=== PATIENT | male | born 1955 | race Caucasian/White ===

== ENCOUNTER 2018-09-20 05:23 | Emergency (ER) | payer BC ==
[2018-09-20 05:29] VITALS: BMI 35.9
--- NOTE | 2018-09-20 05:37 | PDOC ---
History of Present Illness - General History Source: Patient Exam Limitations: No Limitations - History of Present Illness Initial Comments: 09/20/18 05:40 This is a 63-year-old male with history significant for hypertension who comes in complaining of acute onset of left sided and left lower quadrant abdominal pain. Patient denies history of similar symptoms in the past. Patient denies any nausea at this time but did vomit times one. Patient denies any fevers or chills. Patient said pain is been constant since 7 PM last night. Allergies: None Past Medical History: none Social history: Lives with family. No smoking. No alcohol. No illicit drugs. Surgical history: None General: No fevers or chills, no weakness, no weight loss HEENT: No change in vision. No sore throat,. No ear pain CardioVascular: no chest discomfort. No shortness of breath Respiratory:No cough, or wheezing. Gastrointestinal: + nausea, +vomiting, no diarrhea or constipation, No rectal bleeding, + abdominal pain Genitourinary: No dysuria, hematuria, or frequency Musculoskeletal: No joint or muscle pain or swelling Neurologic: No headache, vertigo, dizziness or loss of consciousness Psychiatric: nor depression Skin: No rashes or easy bruising Endocrine: no increased thirst or abnormal weight change Allergic: no skin or latex allergy All other systems reviewed and normal Exam: General: Well-nourished well-developed individual, no acute distress HEENT: Throat: Normal, tonsils normal, no erythema or exudate Neck: Supple, no meningeal signs, no lymphadenopathy Eyes::Pupils equal reactive and round, extraocular motion intact Chest: Nontender to palpation Cardiac: S1-S2 normal, regular rate and rhythm, no murmurs rubs or gallops Respiratory: Lungs clear to auscultation bilateral Abdomen: Soft, nondistended, normal bowel sounds, there is tenderness on palpation lateral to the left side of the umbilicus as well as the left lower quadrant there is no guarding or rebound Extremities: Warm, dry, no cyanosis, clubbing, or edema Skin: No rashes Neuro: Alert and oriented x3, CN II - XII intact, nonfocal exam with normal strength, normal sensation, normal reflexes, normal gait, Psych: Normal mood and affect Medical decision making: This is a 63-year-old male with left sided left lower quadrant abdominal pain times approximately 10 hours now. Workup initiated including CBC, comp, lipase, cardiac enzymes, EKG, fluids, pain medication, CT abdomen and pelvis. Differential diagnosis includes constipation, obstruction, diverticulitis, other intra-abdominal processes <Griselda Camargo I - Last Filed: 09/20/18 05:40> <Walt Walls - Last Filed: 09/20/18 10:46> - General Chief Complaint: Pain, Acute Stated Complaint: ABD PAIN Time Seen by Provider: 09/20/18 05:36 Past History - Past Medical History COPD: No GI Disorders: Yes HTN: Yes Other medical history: ARTHRITIS - Suicide/Smoking/Psychosocial Hx Smoking History: Never smoked Have you smoked in the past 12 months: No Number of Cigarettes Smoked Daily: 0 Information on smoking cessation initiated: No Hx Alcohol Use: No Drug/Substance Use Hx: No Substance Use Type: None <Griselda Camargo I - Last Filed: 09/20/18 05:40> <Walt Walls - Last Filed: 09/20/18 10:46> - Past Medical History Allergies/Adverse Reactions: Allergies Allergy/AdvReac Type Severity Reaction Status Date / Time No Known Allergies Allergy Verified 08/30/17 19:06 Home Medications: Ambulatory Orders Oxycodone HCl 5 mg PO TID 08/30/17 Zolpidem Tartrate [Ambien] 5 mg PO HS 08/30/17 Amitriptyline HCl [Elavil -] 10 mg PO DAILY 09/20/18 Amlodipine Besylate 5 mg PO DAILY 09/20/18 *Physical Exam - Vital Signs Last Vital Signs Temp Pulse Resp BP Pulse Ox 97.7 F 62 14 186/100 H 98 09/20/18 05:26 09/20/18 05:26 09/20/18 05:26 09/20/18 05:26 09/20/18 05:26 <Griselda Camargo I - Last Filed: 09/20/18 05:40> - Vital Signs Last Vital Signs Temp Pulse Resp BP Pulse Ox 98.6 F 72 16 155/88 98 09/20/18 07:20 09/20/18 07:20 09/20/18 07:20 09/20/18 07:20 09/20/18 05:26 <Walt Walls - Last Filed: 09/20/18 10:46> Moderate Sedation - Procedure Monitoring Vital Signs: Procedure Monitoring Vital Signs Temperature 97.7 F 09/20/18 05:26 Pulse Rate 62 09/20/18 05:26 Respiratory Rate 14 09/20/18 05:26 Blood Pressure 186/100 H 09/20/18 05:26 O2 Sat by Pulse Oximetry (%) 98 09/20/18 05:26 <Griselda Camargo I - Last Filed: 09/20/18 05:40> - Procedure Monitoring Vital Signs: Procedure Monitoring Vital Signs Temperature 98.6 F 09/20/18 07:20 Pulse Rate 72 09/20/18 07:20 Respiratory Rate 16 09/20/18 07:20 Blood Pressure 155/88 09/20/18 07:20 O2 Sat by Pulse Oximetry (%) 98 09/20/18 05:26 <Walt Walls - Last Filed: 09/20/18 10:46> ED Treatment Course - LABORATORY CBC & Chemistry Diagram: 09/20/18 05:42 09/20/18 05:42 - ADDITIONAL ORDERS Additional order review: Laboratory Results 09/20/18 09/20/18 09/20/18 08:08 05:42 05:42 Sodium Potassium Chloride Carbon Dioxide Anion Gap BUN Creatinine Creat Clearance w eGFR Random Glucose Calcium Total Bilirubin AST ALT Alkaline Phosphatase Creatine Kinase Cancelled Troponin I Cancelled Total Protein Albumin Lipase 132 Urine Color Heaven Urine Appearance Clear Urine pH 7.0 Ur Specific Mccoll 1.015 Urine Protein Negative Urine Glucose (UA) Negative Urine Ketones Negative Urine Blood Negative Urine Nitrite Negative Urine Bilirubin Negative Urine Urobilinogen 0.2 Ur Leukocyte Esterase Negative 09/20/18 05:42 Sodium 140 Potassium 4.2 Chloride 105 Carbon Dioxide 24 Anion Gap 11 BUN 22 H Creatinine 1.1 Creat Clearance w eGFR > 60 Random Glucose 177 H Calcium 9.5 Total Bilirubin 1.0 AST 17 ALT 39 Alkaline Phosphatase 70 Creatine Kinase 99 Troponin I < 0.02 Total Protein 7.6 Albumin 4.2 Lipase Urine Color Urine Appearance Urine pH Ur Specific Mccoll Urine Protein Urine Glucose (UA) Urine Ketones Urine Blood Urine Nitrite Urine Bilirubin Urine Urobilinogen Ur Leukocyte Esterase 09/20/18 05:42 RBC 5.47 MCV 85.7 MCHC 32.5 RDW 14.7 MPV 8.1 D Neutrophils % 83.5 H D Lymphocytes % 12.6 D Monocytes % 3.4 L Eosinophils % 0.2 D Basophils % 0.3 - Medications Given in the ED: ED Medications Discontinued Medications Generic Name Dose Route Start Last Admin Trade Name Sarah PRN Reason Stop Dose Admin Acetaminophen 1,000 mg 09/20/18 07:18 09/20/18 07:26 Ofirmev Injection - IVPB 09/20/18 07:19 1,000 mg ONCE ONE Administration Hydromorphone HCl 1 mg 09/20/18 05:45 09/20/18 05:53 Dilaudid Injection - IVPUSH 09/20/18 05:46 1 mg ONCE ONE Administration Sodium Chloride 1,000 mls @ 1,000 mls/hr 09/20/18 05:44 09/20/18 05:46 Normal Saline - IV 09/20/18 06:43 1,000 mls/hr .Q1H ONE Administration Morphine Sulfate 4 mg 09/20/18 05:44 09/20/18 05:47 Morphine Injection - IVPUSH 09/20/18 05:45 4 mg ONCE ONE Administration Sodium Chloride 1,000 ml 09/20/18 07:18 09/20/18 07:26 Normal Saline - IV 09/20/18 07:19 1,000 ml ONCE ONE Administration Sodium Chloride 1,000 ml 09/20/18 09:09 09/20/18 09:13 Normal Saline - IV 09/20/18 09:10 1,000 ml ONCE ONE Administration <Walt Walls - Last Filed: 09/20/18 10:46> Medical Decision Making - Medical Decision Making 09/20/18 10:34 Patient feels much better no longer having pain and had a small bowel movement Patient does not want to be observed in the hospital secondary to insurance issues I discussed for greater than 15 minutes of patient risks and benefits of leaving the hospital versus staying for observation Patient understands these risks is competent and has capacity to make decisions. He will return to the hospital for any returning pain abdominal distention or for any concerns Otherwise she will follow up with his doctor gastroenterology within 1 week Findings, the need for follow-up and strict return instructions discussed with patient. <Walt Walls - Last Filed: 09/20/18 10:46> *DC/Admit/Observation/Transfer <Griselda Camargo I - Last Filed: 09/20/18 05:40> - Discharge Dispostion Decision to Admit order: No <Walt Walls - Last Filed: 09/20/18 10:46> Diagnosis at time of Disposition: Ileus - Discharge Dispostion Disposition: AGAINST MEDICAL ADVICE Condition at time of disposition: Fair - Referrals Referrals: Bk Sheldon MD [Primary Care Provider] - Jose C Tavarez MD [Staff Physician] - Lonnie Salgado DO [Staff Physician] - - Patient Instructions Printed Discharge Instructions: Acute Abdominal Pain Additional Instructions: Your CAT scan showed a small ileus with distended stomach and bowel above this point It was recommended that you stay in the hospitall for hydration and bowel rest. You have decided to leave against medical advice. Clear fluids for the next 24hrs if no pain and passing gas ok to proceed to bland diet. Return to ED immediately for any severe returning pain vomitting or any concerns - Post Discharge Activity
[2018-09-20] MEDS ORDERED: morphine SULFATE 4 MG/ML VIAL ONE (05:40)
[2018-09-20] MEDS ORDERED: SODIUM CHLORIDE 1,000 ML IV ONE (05:44)
[2018-09-20] MEDS ORDERED: morphine CARPU-JECT 4 MG/1 ML DISP.SYRIN IVPUSH ONE (05:44)
[2018-09-20] MEDS ORDERED: HYDROmorphone HCL CARPU-JECT 1 MG/1 ML DISP.SYRIN IVPUSH ONE (05:45)
[2018-09-20] MEDS ORDERED: HYDROmorphone HCL CARPU-JECT 1 MG/1 ML DISP.SYRIN ONE (05:49)
[2018-09-20 06:15] LABS: BASO % 0.3 % (0-2.0); EOS % 0.2 % (0-4.5); HEMATOCRIT 46.9 % (35.4-49); HEMOGLOBIN 15.2 GM/dL (11.7-16.9); LYMPH % 12.6 % (8-40); MCH 27.9 pg (25.7-33.7); MCHC 32.5 g/dl (32.0-35.9); MEAN CELL VOLUME 85.7 fl (80-96); MEAN PLT VOLUME 8.1 fl (7.5-11.1); MONO % 3.4 % (3.8-10.2); NEUT % 83.5 % (42.8-82.8); PLATELET COUNT 257 K/MM3 (134-434); RBC 5.47 M/mm3 (4.00-5.60); RDW 14.7 % (11.9-15.9); WHITE BLOOD COUNT 12.1 K/mm3 (4.0-10.0)
[2018-09-20 06:53] LABS: ALBUMIN 4.2 g/dl (3.4-5.0); ALK PHOS 70 U/L (45-117); ANION GAP 11 MMOL/L (8-16); BLOOD UREA NITROGEN 22 mg/dL (7-18); CALCIUM 9.5 mg/dL (8.5-10.1); CHLORIDE 105 mmol/L (98-107); CO2 24 mmol/L (21-32); CREATININE 1.1 mg/dL (0.55-1.3); GLUCOSE,RANDOM 177 mg/dL (74-106); POTASSIUM 4.2 mmol/L (3.5-5.1); SGOT/AST 17 U/L (15-37); SGPT/ALT 39 U/L (13-61); SODIUM 140 mmol/L (136-145); TOT PROT 7.6 g/dl (6.4-8.2)
[2018-09-20] MEDS ORDERED: ACETAMINOPHEN 1000 MG/100 ML VIAL (NON FORMULARY) IVPB ONE (07:18)
[2018-09-20] MEDS ORDERED: SODIUM CHLORIDE 0.9% 1000 ML INFUS.BAG IV ONE ×2 (07:18→09:09)
[2018-09-20] MEDS ORDERED: ACETAMINOPHEN INJECTION 100 ML IVPB ONE (07:19)
[2018-09-20 08:15] LABS: URINE APPEARANCE Clear; URINE BILIRUBIN Negative (NEGATIVE); URINE COLOR Amber; URINE GLUCOSE (UA) Negative (NEGATIVE); URINE KETONE Negative (NEGATIVE); URINE LEUK ESTERASE Negative (NEGATIVE); URINE NITRITE Negative (NEGATIVE); URINE PROTEIN Negative (NEGATIVE); URINE UROBILINOGEN 0.2 (0.2-1.0)
[2018-09-20 11:12] VITALS: BP 139/98; PULSE 81; TEMP 98.9
--- NOTE | 2018-09-20 15:28 | EKG ---
Test Reason : Blood Pressure : / mmHG Vent. Rate : 075 BPM Atrial Rate : 075 BPM P-R Int : 146 ms QRS Dur : 086 ms QT Int : 482 ms P-R-T Axes : 041 019 009 degrees QTc Int : 538 ms NORMAL SINUS RHYTHM ABNORMAL ECG WHEN COMPARED WITH ECG OF 30-AUG-2017 23:05, QT HAS LENGTHENED Confirmed by TOSHIA MATA MD ([id number]) on 09/20/2018 3:28:12 PM Referred By: MD PEOPLES Confirmed By:TOSHIA MATA MD
== END 2018-09-20 10:58 | disposition left against medical advice (07) ==
LOC: FER 05:23
PROC: 3E033NZ Introduction of Analgesics, Hypnotics, Sedatives into Peripheral Vein, Percutaneous Approach (ICD-10-PCS; principal; 2018-09-20)
PROC: 3E0337Z Introduction of Electrolytic and Water Balance Substance into Peripheral Vein, Percutaneous Approach (ICD-10-PCS; 2018-09-20)
DX: K56.7 Ileus, unspecified (principal)
CPT/HCPCS: 36415; 74177-TC; 80053; 81003; 82550; 83690; 84484; 85025; 87086; 93005; 99284-25; J0131; J7030

== ENCOUNTER 2019-03-13 18:56 | Emergency (ER) | payer BC ==
[2019-03-13 19:17] VITALS: TEMP 98.4; BMI 35.9
--- NOTE | 2019-03-13 19:45 | PDOC ---
History of Present Illness - General Chief Complaint: Pain Stated Complaint: PAIN TO NORMA OF RIGHT KNEE AND POSSIBLE NEAR SYNC Time Seen by Provider: 03/13/19 19:42 Past History - Past Medical History Allergies/Adverse Reactions: Allergies Allergy/AdvReac Type Severity Reaction Status Date / Time No Known Allergies Allergy Verified 03/13/19 19:00 Home Medications: Ambulatory Orders Oxycodone HCl 5 mg PO TID 08/30/17 Zolpidem Tartrate [Ambien] 5 mg PO HS 08/30/17 Amlodipine Besylate 5 mg PO DAILY 09/20/18 COPD: No GI Disorders: Yes HTN: Yes Other medical history: SPINAl stenosis - Suicide/Smoking/Psychosocial Hx Smoking History: Never smoked Have you smoked in the past 12 months: No Number of Cigarettes Smoked Daily: 0 Information on smoking cessation initiated: No Hx Alcohol Use: No Drug/Substance Use Hx: No Substance Use Type: None *Physical Exam - Vital Signs Last Vital Signs Temp Pulse Resp BP Pulse Ox 98.4 F 71 16 126/94 96 03/13/19 18:59 03/13/19 18:59 03/13/19 18:59 03/13/19 18:59 03/13/19 18:59 *DC/Admit/Observation/Transfer - Discharge Dispostion Condition at time of disposition: Stable - Referrals Referrals: Bk Sheldon MD [Primary Care Provider] - - Patient Instructions - Post Discharge Activity
--- NOTE | 2019-03-13 20:09 | PDOC ---
*Physical Exam - Vital Signs Last Vital Signs Temp Pulse Resp BP Pulse Ox 98.4 F 71 16 126/94 96 03/13/19 18:59 03/13/19 18:59 03/13/19 18:59 03/13/19 18:59 03/13/19 19:50 Progress Note - Progress Note Progress Note: Care of this patient was transferred to [place] from Dr. Doyle at 1930. This is a 63-year-old male who comes in complaining of pain to the back of his leg. Patient has an ultrasound Doppler pending to rule out Garcia's cyst rule out DVT. Patient otherwise was without complaint. On Dr. Doyle exam patient did have some edema and tenderness. Plan is to follow up on ultrasound and discharge patient post result of ultrasound. Patient's ultrasound showed a small collection of fluid behind the knee consistent with a small Garcia's cyst otherwise no evidence of DVT. Patient discharged home will follow-up with his primary care doctor *DC/Admit/Observation/Transfer Diagnosis at time of Disposition: Garcia's cyst of knee Qualifiers: Laterality: right Qualified Code(s): M71.21 - Synovial cyst of popliteal space [Garcia], right knee - Discharge Dispostion Disposition: HOME Condition at time of disposition: Stable Decision to Admit order: No - Referrals Referrals: Bk Sheldon MD [Primary Care Provider] - - Patient Instructions Additional Instructions: Your ultrasound showed that there is a small collection of fluid underneath this is called a Bakers cyst. There was no blood clots in your leg. For the pain take an anti-inflammatory such as ibuprofen or Aleve as directed on the box. Return to the emergency department immediately with ANY new, persistent or worsening symptoms. Continue any medications as previously prescribed by your physician. You should follow up with your primary doctor as soon as possible regarding today's emergency department visit. . Please make sure your doctor reviews the results of your emergency evaluation. Thank you for coming to the Emergency Department today for your care. It was a pleasure to see you today. Please note that your evaluation is INCOMPLETE until you follow-up with your doctor. - Post Discharge Activity
--- NOTE | 2019-03-13 21:08 | PDOC ---
*Physical Exam - Vital Signs Last Vital Signs Temp Pulse Resp BP Pulse Ox 98.4 F 71 16 126/94 96 03/13/19 18:59 03/13/19 18:59 03/13/19 18:59 03/13/19 18:59 03/13/19 19:50 Heart Score/ECG Review - History History: Slightly suspicious - Electrocardiogram EKG: Normal - Age Age: 45-65 - Risk Factors Risk Factors Heart Score: Yes Hx Hypertension Based on the list above the patient has:: 1-2 risk factors - Troponin Troponin: </= normal limit - Score Heart Score - Total: 2 ED Treatment Course - LABORATORY CBC & Chemistry Diagram: 03/13/19 21:09 03/13/19 21:09 - RADIOLOGY Radiology Studies Ordered: Category Date Time Status HEAD CT WITHOUT CONTRAST [CT] Stat CT Scan 03/13/19 20:58 Ordered Progress Note - Progress Note Progress Note: Post completing the patient's discharge and going in to tell them he was being discharged patient then informs me that the reason he came here was because he had been passing out. Patient states that he has had 2 syncopal episodes over the last 24-48 hours. Patient said both times he definitely passed out and was out for an unknown amount of time however he felt like he was going to pass out and did not fall and hurt himself when he passed out. Patient said prior to passing out he felt lightheaded and short of breath and then he passed out. Patient denied any chest pain, nausea, diaphoresis. Patient denies a history of vasovagal or syncope episodes in the past. Patient also is complaining that it feels like things are moving back and forth when they are. He describes it as a sensation of rocking back and forth on a boat. Patient has a history significant for hypertension. He denies history of diabetes, coronary artery disease or any other illnesses. Allergies: as per nursing notes Past Medical History: As per history of present illness and chronic back pain Social history: Lives with family. No smoking. No alcohol. No illicit drugs. Surgical history: None General: No fevers or chills, no weakness, no weight loss HEENT: No change in vision. No sore throat,. No ear pain CardioVascular: no chest discomfort. No shortness of breath Respiratory:No cough, or wheezing. Gastrointestinal: no nausea, vomiting, diarrhea or constipation, No rectal bleeding Genitourinary: No dysuria, hematuria, or frequency Musculoskeletal: No joint or muscle pain or swelling Neurologic: No headache, vertigo, + dizziness + loss of consciousness Psychiatric: nor depression Skin: No rashes or easy bruising Endocrine: no increased thirst or abnormal weight change Allergic: no skin or latex allergy All other systems reviewed and normal Exam: General: Well-nourished well-developed individual, no acute distress HEENT: Throat: Normal, tonsils normal, no erythema or exudate Neck: Supple, no meningeal signs, no lymphadenopathy Eyes::Pupils equal reactive and round, extraocular motion intact Chest: Nontender to palpation Cardiac: S1-S2 normal, regular rate and rhythm, no murmurs rubs or gallops Respiratory: Lungs clear to auscultation bilateral Abdomen: Soft, nondistended, normal bowel sounds, there is no tenderness on palpation diffusely Extremities: Warm, dry, no cyanosis, clubbing, or edema Skin: No rashes Neuro: Alert and oriented x3, CN II - XII intact, nonfocal exam with normal strength, normal sensation, normal reflexes, normal gait, Psych: Normal mood and affect Assessment and plan: This is a 63-year-old male who comes in what I thought was initially or leg and calf pain to rule out DVT. However in further talking to the patient patient was really here for 2 near syncope/question of syncope all events. Patient got a workup for the syncope. Patient's head CT was negative for any acute pathology Patient's EKG showed a sinus rhythm at [address]-T wave changes otherwise normal Patient's troponin was negative Patient's heart score is 2 Patient was discharged told to follow-up with a neurologist given his family history of amyloid angiopathy. *DC/Admit/Observation/Transfer Diagnosis at time of Disposition: Garcia's cyst of knee Qualifiers: Laterality: right Qualified Code(s): M71.21 - Synovial cyst of popliteal space [Garcia], right knee Syncope Qualifiers: Syncope type: unspecified Qualified Code(s): R55 - Syncope and collapse - Discharge Dispostion Disposition: HOME Condition at time of disposition: Stable - Referrals Referrals: Bk Sheldon MD [Primary Care Provider] - - Patient Instructions Additional Instructions: Your ultrasound showed that there is a small collection of fluid underneath this is called a Bakers cyst. There was no blood clots in your leg. Otherwise your workup for syncope or passing out was negative. It is likely the syncope or passing out was secondary to the pain in your knee however it is important that you follow-up with a auto club travel counselor as well as a neurologist given your family history For the pain take an anti-inflammatory such as ibuprofen or Aleve as directed on the box. Return to the emergency department immediately with ANY new, persistent or worsening symptoms. Continue any medications as previously prescribed by your physician. You should follow up with your primary doctor as soon as possible regarding today's emergency department visit. . Please make sure your doctor reviews the results of your emergency evaluation. Thank you for coming to the Emergency Department today for your care. It was a pleasure to see you today. Please note that your evaluation is INCOMPLETE until you follow-up with your doctor. - Post Discharge Activity
[2019-03-13 22:06] LABS: ALBUMIN 4.2 g/dl (3.4-5.0); BILIRUBIN,TOTAL 1.5 mg/dl (0.2-1); CALCIUM 10.1 mg/dl (8.5-10); POTASSIUM 4.4 mmol/L (3.5-5.1); TOT PROT 7.1 g/dl (6.4-8.2)
[2019-03-13 22:27] LABS: BASO % 0.5 % (0-2.0); HEMATOCRIT 45.5 % (35.4-49); HEMOGLOBIN 15.2 GM/dl (11.7-16.9); LYMPH % 32.8 % (8-40); MCH 28.8 pg (25.7-33.7); MCHC 33.5 g/dl (32.0-35.9); MEAN CELL VOLUME 86.2 fl (80-96); MEAN PLT VOLUME 8.3 fl (7.5-11.1); MONO % 6.4 % (3.8-10.2); NEUT % 58.3 % (42.8-82.8); PLATELET COUNT 279 K/MM3 (134-434); RBC 5.27 M/mm3 (4.00-5.60); WHITE BLOOD COUNT 9.6 K/mm3 (4.0-10.8)
[2019-03-13 22:56] VITALS: BP 122/88; PULSE 74
--- NOTE | 2019-03-14 13:15 | EKG ---
Test Reason : Blood Pressure : / mmHG Vent. Rate : 063 BPM Atrial Rate : 063 BPM P-R Int : 154 ms QRS Dur : 078 ms QT Int : 402 ms P-R-T Axes : 007 003 -14 degrees QTc Int : 411 ms NORMAL SINUS RHYTHM MINIMAL VOLTAGE CRITERIA FOR LVH, MAY BE NORMAL VARIANT NONSPECIFIC ST AND T WAVE ABNORMALITY ABNORMAL ECG WHEN COMPARED WITH ECG OF 20-SEP-2018 06:10, QT HAS SHORTENED Confirmed by ESPERANZA ROWLEY, TOSHIA ([id number]) on 03/14/2019 1:15:14 PM Referred By: MD PEOPLES Confirmed By:TOSHIA MATA MD
== END 2019-03-13 22:56 | disposition home or self-care (01) ==
LOC: FER 18:56
DX: M71.21 Synovial cyst of popliteal space [Baker], right knee (principal); R55 Syncope and collapse; I10 Essential (primary) hypertension
CPT/HCPCS: 36415; 70450-TC; 80053; 82550; 82553; 84484; 85025; 93005; 93971-TC; 99284-25

== ENCOUNTER 2019-07-05 23:31 | Emergency (ER) | payer BC ==
[2019-07-05 23:46] VITALS: BP 115/88; PULSE 72; TEMP 98.2; BMI 36.6
--- NOTE | 2019-07-06 00:34 | PDOC ---
History of Present Illness - General Chief Complaint: Shortness of Breath Stated Complaint: SOB Time Seen by Provider: 07/05/19 23:35 - History of Present Illness Initial Comments: This 64-year-old man with a history of HTN, spinal stenosis,anxiety presents with 6 hour history of upper abdominal distention, bloating and sensation that he cannot take it deep breath secondary to the abdominal distention. He also has not taken any oral fluids or solids in the last 12 hours because he feels that his stomach is "too full". He has no nausea/vomiting or abdominal pain. He also feels he cannot take a deep breath , stating that he feels his "diaphragm cannot move fully". Yesterday, he was able to eat but was feeling mild distention of his abdomen. Patient has had similar symptoms in the past but upper endoscopy (as well as colonoscopy) was performed and no abnormality was reportedly found. He has had burning abdominal pain in the past, treated effectively with amitriptyline but no history of peptic ulcers disease/gastritis /GERD. No history of diabetes or diagnosis of gastric outlet obstruction/ gastroparesis. He has also had increase in bilateral ankle edema in the last few days; his amlodipine dose was doubled 2 weeks ago by his PMD, Dr. Sheldon. No pain noted in lower extremities Past History - Past Medical History Allergies/Adverse Reactions: Allergies Allergy/AdvReac Type Severity Reaction Status Date / Time No Known Allergies Allergy Verified 03/13/19 19:00 Home Medications: Ambulatory Orders Oxycodone HCl 5 mg PO TID 08/30/17 Zolpidem Tartrate [Ambien] 5 mg PO HS 08/30/17 Amlodipine Besylate 10 mg PO DAILY 09/20/18 LORazepam [Ativan] 1 mg PO DAILY PRN #3 tablet MDD 1 tab 07/06/19 COPD: No GI Disorders: Yes HTN: Yes - Suicide/Smoking/Psychosocial Hx Smoking History: Never smoked Have you smoked in the past 12 months: No Number of Cigarettes Smoked Daily: 0 Hx Alcohol Use: No Drug/Substance Use Hx: No Substance Use Type: None Review of Systems - Review of Systems Able to Perform ROS?: Yes Comments:: 12 point review of systems is negative except for what is noted in the history of present illness *Physical Exam - Vital Signs Last Vital Signs Temp Pulse Resp BP Pulse Ox 98.2 F 72 16 115/88 98 07/05/19 23:43 07/05/19 23:43 07/05/19 23:43 07/05/19 23:43 07/05/19 23:43 - Physical Exam Comments: GENERAL: Adult male, anxious but in no respiratory distress HEAD: Normal with no signs of trauma. EYES: PERRLA, EOMI, sclera anicteric, conjunctiva clear. ENT: Ears normal, nares patent, oropharynx clear without exudates. Dry mucous membranes. NECK: Normal range of motion, supple without lymphadenopathy, JVD, or masses. LUNGS: Breath sounds equal, clear to auscultation bilaterally. No wheezes, and no crackles. HEART:Regular rate and rhythm, normal S1 and S2 without murmur, rub or gallop. ABDOMEN:.Normal bowel sounds; distended (especially upper abdomen), firm without tenderness/masses/organomegaly EXTREMITIES: Normal range of motion,. 1+ nonpitting edema to ankles bilaterally No clubbing or cyanosis. No tenderness; mildly erythematous to knees without increased warmth or fluctuance NEUROLOGICAL: Cranial nerves II through XII grossly intact. Normal speech. No focal neurological deficits. SKIN: Warm, Dry, normal turgor, no rashes or lesions noted. ED Treatment Course - LABORATORY CBC & Chemistry Diagram: 07/06/19 01:17 07/06/19 01:17 Progress Note - Progress Note Progress Note: This 64-year-old man with a history of hypertension and spinal stenosis presents with abdominal distention/discomfort progressing throughout the day. The patient feels that he cannot take a deep breath or swallow any liquids or solids because his stomach feels that full. Exam as noted shows firm abdomen with hypoactive bowel sounds and moderate distention, especially the upper quadrants. There is no tenderness on exam however. Patient admits that he has had these symptoms in previous visits to the ER . He has no previous diagnoses of gastric outlet obstruction or gastroparesis. Differential diagnosis includes both functional and structural obstruction in proximal (gastric) or more distal areas of the gastrointestinal tract. IV access was obtained and CBC/ chemistry profile/BNP/troponin level obtained. In order to have the patient lie down for EKG (he was maintaining upright position secondary to sensation of not being able to breathe), patient given 2 doses 1 mg Ativan IV. Twelve-lead electrocardiogram performed: Normal sinus rhythm at 74 bpm. Waveforms, axis and intervals are all normal. Comparing to previous EKG dated 09/20/18, there is no significant changes. Laboratory evaluation essentially normal except for slight elevation of white blood cell count (11,600) BUN is slightly elevated at 25.2 with creatinine of 1.2. Because of patient's continued abdominal discomfort/distention and perceived inability to take a deep breath or swallow liquids (although the latter symptoms somewhat improved after Ativan), abdominal/pelvic CT with IV contrast performed to rule out intra-abdominal pathology. Patient received another dose of IV Ativan 1 mg because of the patient's claustrophobia which he states was severe during previous CT examinations. After CT was performed, patient given a liter of normal saline IV. Preliminary interpretation by Imaging oracle fusion middleware architect: [place] present without evidence of acute cholecystitis. Otherwise, no evidence of acute intra- abdominal pathology. No obstruction, gastric or intestinal dilatation, solid organ abnormality or abscess seen. Clinical presentation most consistent with anxiety with possible underlying functional dysmotility of the proximal GI tract ( for example, mild gastroparesis with symptoms worsened secondary to patient's anxiety) Results discussed with the patient. He feels significantly less anxious and can now take a deep breath without the feeling of epigastric pressure/ distention. He states that he will probably not attempt to drink or eat anything over the next several hours. He is advised to follow-up with the business development engineer (Dr. Serene Esqueda is credit and loan collections supervisor at [facility] and referral information will be given) and also to consider follow-up with a psychiatrist or clinical psychologist for evaluation and treatment of his anxiety. He should return to the ER if he has any recurrent severe abdominal distention/ bloating/discomfort or if he develops vomiting/fever *DC/Admit/Observation/Transfer Diagnosis at time of Disposition: Abdominal distention, Anxiety - Discharge Dispostion Disposition: HOME Condition at time of disposition: Stable - Prescriptions Prescriptions: LORazepam [Ativan] 1 mg PO DAILY PRN #3 tablet MDD 1 tab PRN Reason: Anxiety - Referrals Referrals: Bk Sheldon MD [Primary Care Provider] - Lonnie Salgado DO [Staff Physician] - 1 week - Patient Instructions Printed Discharge Instructions: DI for Anxiety -- Adult Additional Instructions: Follow-up with business development engineer () regarding abdominal symptoms within the next week Ativan 1 mg once a day only as needed for severe symptoms of anxiety Return to ER if you have persistent abdominal distention/discomfort or develop fever/vomiting Consider follow-up with psychiatrist or clinical psychologist regarding evaluation and treatment of your anxiety - Post Discharge Activity
[2019-07-06] MEDS ORDERED: LORazepam 2 MG/ML SDV VIAL ONE ×2 (01:31→03:21)
[2019-07-06 02:10] LABS: BASO % 0.6 % (0-2.0); EOS % 1.7 % (0-4.5); HEMATOCRIT 46.3 % (35.4-49); HEMOGLOBIN 15.4 GM/dL (11.7-16.9); LYMPH % 29.5 % (8-40); MCH 28.8 pg (25.7-33.7); MCHC 33.3 g/dl (32.0-35.9); MEAN CELL VOLUME 86.4 fl (80-96); MEAN PLT VOLUME 8.4 fl (7.5-11.1); MONO % 6.4 % (3.8-10.2); NEUT % 61.8 % (42.8-82.8); PLATELET COUNT 347 K/MM3 (134-434); RBC 5.35 M/mm3 (4.00-5.60); RDW 14.7 % (11.9-15.9); WHITE BLOOD COUNT 11.6 K/mm3 (4.0-10.0)
[2019-07-06 02:35] LABS: ALBUMIN 4.4 g/dl (3.4-5.0); ALK PHOS 68 U/L (45-117); ANION GAP 8 MMOL/L (8-16); BILIRUBIN,TOTAL 1.7 mg/dL (0.2-1); BLOOD UREA NITROGEN 25.2 mg/dL (7-18); CALCIUM 9.9 mg/dL (8.5-10.1); CHLORIDE 108 mmol/L (98-107); CO2 25 mmol/L (21-32); CREATININE 1.2 mg/dL (0.55-1.3); GLUCOSE,RANDOM 105 mg/dL (74-106); POTASSIUM 3.8 mmol/L (3.5-5.1); SGOT/AST 23 U/L (15-37); SGPT/ALT 35 U/L (13-61); SODIUM 141 mmol/L (136-145); TOT PROT 7.9 g/dl (6.4-8.2)
[2019-07-06] MEDS ORDERED: SODIUM CHLORIDE 1,000 ML IV STA (03:34)
--- NOTE | 2019-07-06 15:13 | EKG ---
Test Reason : Blood Pressure : / mmHG Vent. Rate : 074 BPM Atrial Rate : 074 BPM P-R Int : 138 ms QRS Dur : 086 ms QT Int : 384 ms P-R-T Axes : 014 023 -28 degrees QTc Int : 426 ms NORMAL SINUS RHYTHM ABNORMAL ECG WHEN COMPARED WITH ECG OF 13-MAR-2019 21:11, INVERTED T WAVES HAVE REPLACED NONSPECIFIC T WAVE ABNORMALITY IN ANTERIOR LEADS Confirmed by MD ZENIA, SHON ([id number]) on 07/06/2019 3:13:24 PM Referred By: MD LOPEZ Confirmed By:SHON KNUTSON MD
== END 2019-07-06 05:02 | disposition home or self-care (01) ==
LOC: FER 23:31
PROC: 3E033NZ Introduction of Analgesics, Hypnotics, Sedatives into Peripheral Vein, Percutaneous Approach (ICD-10-PCS; principal; 2019-07-05)
PROC: 3E0337Z Introduction of Electrolytic and Water Balance Substance into Peripheral Vein, Percutaneous Approach (ICD-10-PCS; 2019-07-05)
DX: R14.0 Abdominal distension (gaseous) (principal); F41.9 Anxiety disorder, unspecified; I10 Essential (primary) hypertension; M48.00 Spinal stenosis, site unspecified
CPT/HCPCS: 36415; 74177-TC; 80053; 82550; 82553; 83690; 83880; 84484; 85025; 93005; 99283-25; J7030

== ENCOUNTER 2025-04-19 12:11 | Inpatient (IN) | payer MEDICARE, OTHER ==
[2025-04-19 13:16] LABS: ABSOLUTE IMMATURE GRANULOCYTES 0.04 x10^3/uL (0.0-0.031); BASOPHILS # 0.03 x10^3/uL (0.01-0.08); EOSINOPHIL % 0.1 % (0.8-7.0); EOSINOPHILS # 0.01 x10^3/uL (0.04-0.54); MCHC 32.7 g/dl (32.3-36.5); MEAN CELL VOLUME 86.8 fl (79.0-92.2); MEAN PLT VOLUME 10.0 fl (9.4-12.4); MONOCYTE # 0.84 x10^3/uL (0.30-0.82); MONOCYTE % 5.2 % (5.3-12.2); RDW 15.2 % (12.2-16.4)
[2025-04-19 13:23] LABS: INR 1.23 (0.83-1.09); PROTHROMBIN TIME (PATIENT) 13.6 SEC (9.7-13.0)
[2025-04-19] MEDS: LACTATED RINGERS SOLUTION 1000 ML INFUS.BAG IV STA (13:24)
[2025-04-19 13:26] LABS: ACTIVATED PTT 30.8 SECONDS (25.2-36.5)
[2025-04-19 13:38] LABS: ALK PHOS 48.0 U/L (45-117); CO2 23.0 mmol/L (21-32); CREATININE 1.2 mg/dl (0.6-1.3); GLUCOSE,RANDOM 136.0 mg/dl (74-106); SGOT/AST 20.0 U/L (15-37); SGPT/ALT 19.0 U/L (7-52); TOT PROT 7.0 g/dl (6.4-8.2)
[2025-04-19 14:29] LABS: BG HCT 46.0 % (35.4-49); VENOUS BASE EXCESS -1.1 mmol/L (-2-2); VENOUS O2 SATURATION 50.5 % (70-80); VENOUS PCO2 39.8 mmHg (38-52); VENOUS PH 7.391 (7.310-7.410)
[2025-04-19] MEDS ORDERED: CEFAZOLIN SODIUM 2 GM VIAL ONE (14:37)
[2025-04-19] MEDS: CEFAZOLIN SODIUM 2 GM in DEXTROSE 5%-WATER 100 ML IVPB SCH (14:43)
[2025-04-19] MEDS ORDERED: VANCOMYCIN 1,000 MG VIAL (RESTRICTED TO ID ONLY) ONE (14:44)
[2025-04-19] MEDS ORDERED: VANCOMYCIN 500 MG VIAL (RESTRICTED TO ID ONLY) ONE (14:44)
[2025-04-19] MEDS: VANCOMYCIN HCL 1,500 MG in DEXTROSE 5%-WATER - 500 ML IVPB ONE (15:45)
[2025-04-19] MEDS: ACETAMINOPHEN 325 MG TABLET (FP) PO PRN (21:59)
[2025-04-19] MEDS: ZOLPIDEM TARTRATE 5 MG TABLET PO PRN (23:00)
[2025-04-19 23:40] LABS: EPITHELIAL CELLS NEG /hpf
[2025-04-20 07:49] LABS: ABSOLUTE IMMATURE GRANULOCYTES 0.03 x10^3/uL (0.0-0.031); BASOPHILS # 0.04 x10^3/uL (0.01-0.08); EOSINOPHIL % 0.2 % (0.8-7.0); EOSINOPHILS # 0.03 x10^3/uL (0.04-0.54); MCHC 32.2 g/dl (32.3-36.5); MEAN CELL VOLUME 88.4 fl (79.0-92.2); MEAN PLT VOLUME 10.4 fl (9.4-12.4); MONOCYTE # 1.03 x10^3/uL (0.30-0.82); MONOCYTE % 7.2 % (5.3-12.2); RDW 15.7 % (12.2-16.4)
[2025-04-20 09:02] LABS: ALK PHOS 42.0 U/L (45-117); CO2 26.0 mmol/L (21-32); CREATININE 1.3 mg/dl (0.6-1.3); GLUCOSE,RANDOM 104.0 mg/dl (74-106); SGOT/AST 25.0 U/L (15-37); SGPT/ALT 15.0 U/L (7-52); TOT PROT 6.3 g/dl (6.4-8.2)
[2025-04-20] MEDS: ENOXAPARIN NA (PORCINE) 40 MG/0.4 ML DISP.SYRIN SQ SCH (09:19)
[2025-04-20] MEDS: FUROSEMIDE 20 MG TABLET (FP) PO SCH (09:20)
[2025-04-20] MEDS ORDERED: HYDROCHLOROTHIAZIDE 12.5 MG CAPSULE (FP) PO SCH (10:00)
[2025-04-20] MEDS ORDERED: VANCOMYCIN PREMIX 1.5 GM 1,500 MG/300 ML BAG IVPB SCH (10:00)
[2025-04-20] MEDS ORDERED: PATIENT'S OWN MEDICATION (NON-FORMULARY) (Valsartan/Hydrochlorothiazide [Valsartan-Hctz 16 PO SCH (10:00)
[2025-04-20] MEDS ORDERED: VALSARTAN 160 MG TABLET PO SCH (10:00)
[2025-04-20] MEDS: VANCOMYCIN PREMIX 1.5 GM 1,500 MG/300 ML BAG IVPB SCH (11:28)
[2025-04-20] MEDS ORDERED: AMPICILLIN NA/SULBACTAM NA 3 GM in SODIUM CHLORIDE 100 ML IVPB SCH (12:30)
[2025-04-20] MEDS: ACETAMINOPHEN 325 MG TABLET (FP) PO PRN (13:18)
[2025-04-20] MEDS: AMPICILLIN NA/SULBACTAM NA 3 GM in SODIUM CHLORIDE 100 ML IVPB SCH (16:29)
[2025-04-20] MEDS: ZOLPIDEM TARTRATE 5 MG TABLET PO PRN (22:12)
[2025-04-21 07:44] LABS: ABSOLUTE IMMATURE GRANULOCYTES 0.03 x10^3/uL (0.0-0.031); BASOPHILS # 0.04 x10^3/uL (0.01-0.08); EOSINOPHIL % 1.7 % (0.8-7.0); EOSINOPHILS # 0.17 x10^3/uL (0.04-0.54); MCHC 32.5 g/dl (32.3-36.5); MEAN CELL VOLUME 88.1 fl (79.0-92.2); MEAN PLT VOLUME 9.5 fl (9.4-12.4); MONOCYTE # 1.09 x10^3/uL (0.30-0.82); MONOCYTE % 10.8 % (5.3-12.2); RDW 15.3 % (12.2-16.4)
[2025-04-21 10:25] LABS: CO2 25.0 mmol/L (21-32); CREATININE 1.1 mg/dl (0.6-1.3); GLUCOSE,RANDOM 106.0 mg/dl (74-106)
[2025-04-21 20:04] LABS: HCV DIAGNOSTIC IN-HOUSE W/RFLX NON-REACTIVE (NONREACTIVE)
[2025-04-21 20:19] LABS: HIV INTERPRETATION NEGATIVE (NEGATIVE)
[2025-04-21] MEDS: ZOLPIDEM TARTRATE 5 MG TABLET PO ONE (23:34)
[2025-04-22 07:48] LABS: ABSOLUTE IMMATURE GRANULOCYTES 0.03 x10^3/uL (0.0-0.031); BASOPHILS # 0.04 x10^3/uL (0.01-0.08); EOSINOPHIL % 4.1 % (0.8-7.0); EOSINOPHILS # 0.38 x10^3/uL (0.04-0.54); MCHC 32.5 g/dl (32.3-36.5); MEAN CELL VOLUME 87.9 fl (79.0-92.2); MEAN PLT VOLUME 9.5 fl (9.4-12.4); MONOCYTE # 0.91 x10^3/uL (0.30-0.82); MONOCYTE % 9.7 % (5.3-12.2); RDW 15.2 % (12.2-16.4)
[2025-04-22 08:11] LABS: ALK PHOS 42.0 U/L (45-117); CO2 26.0 mmol/L (21-32); CREATININE 1.0 mg/dl (0.6-1.3); GLUCOSE,RANDOM 99.0 mg/dl (74-106); SGOT/AST 28.0 U/L (15-37); SGPT/ALT 21.0 U/L (7-52); TOT PROT 5.8 g/dl (6.4-8.2)
[2025-04-22] MEDS: ZOLPIDEM TARTRATE 5 MG TABLET PO ONE (22:01)
[2025-04-22] MEDS: ZOLPIDEM TARTRATE 5 MG TABLET PO PRN (22:01)
[2025-04-23 08:06] LABS: ABSOLUTE IMMATURE GRANULOCYTES 0.06 x10^3/uL (0.0-0.031); BASOPHILS # 0.07 x10^3/uL (0.01-0.08); EOSINOPHIL % 5.0 % (0.8-7.0); EOSINOPHILS # 0.50 x10^3/uL (0.04-0.54); MCHC 32.4 g/dl (32.3-36.5); MEAN CELL VOLUME 88.0 fl (79.0-92.2); MEAN PLT VOLUME 9.4 fl (9.4-12.4); MONOCYTE # 0.75 x10^3/uL (0.30-0.82); MONOCYTE % 7.6 % (5.3-12.2); RDW 15.3 % (12.2-16.4)
[2025-04-23 08:09] LABS: CO2 26.0 mmol/L (21-32); CREATININE 1.0 mg/dl (0.6-1.3); GLUCOSE,RANDOM 103.0 mg/dl (74-106)
[2025-04-23 09:08] LABS: ERYTHROCYTE SEDIMENTATION RATE 90 mm/hr (0-20)
[2025-04-23] MEDS: FUROSEMIDE 40 MG/4 ML INJECTABLE VIAL IVPUSH SCH (10:24)
[2025-04-23] MEDS: SILVER SULFADIAZINE 1% TOP CREAM 50 GM JAR TP SCH (10:31)
[2025-04-23] MEDS: ZOLPIDEM TARTRATE 5 MG TABLET PO PRN (23:53)
[2025-04-24 10:45] LABS: ABSOLUTE IMMATURE GRANULOCYTES 0.12 x10^3/uL (0.0-0.031); BASOPHILS # 0.07 x10^3/uL (0.01-0.08); EOSINOPHIL % 4.4 % (0.8-7.0); EOSINOPHILS # 0.45 x10^3/uL (0.04-0.54); MCHC 32.1 g/dl (32.3-36.5); MEAN CELL VOLUME 88.4 fl (79.0-92.2); MEAN PLT VOLUME 8.7 fl (9.4-12.4); MONOCYTE # 0.88 x10^3/uL (0.30-0.82); MONOCYTE % 8.5 % (5.3-12.2); RDW 15.3 % (12.2-16.4)
[2025-04-24 10:58] LABS: ALK PHOS 43.0 U/L (45-117); CO2 29.0 mmol/L (21-32); CREATININE 1.0 mg/dl (0.6-1.3); GLUCOSE,RANDOM 111.0 mg/dl (74-106); SGOT/AST 30.0 U/L (15-37); SGPT/ALT 31.0 U/L (7-52); TOT PROT 6.1 g/dl (6.4-8.2)
[2025-04-25 11:26] LABS: ABSOLUTE IMMATURE GRANULOCYTES 0.13 x10^3/uL (0.0-0.031); BASOPHILS # 0.06 x10^3/uL (0.01-0.08); EOSINOPHIL % 4.0 % (0.8-7.0); EOSINOPHILS # 0.40 x10^3/uL (0.04-0.54); MCHC 31.6 g/dl (32.3-36.5); MEAN CELL VOLUME 88.6 fl (79.0-92.2); MEAN PLT VOLUME 8.6 fl (9.4-12.4); MONOCYTE # 0.69 x10^3/uL (0.30-0.82); MONOCYTE % 6.9 % (5.3-12.2); RDW 15.1 % (12.2-16.4)
[2025-04-25 11:38] LABS: ALK PHOS 55.0 U/L (45-117); CO2 29.0 mmol/L (21-32); CREATININE 1.1 mg/dl (0.6-1.3); GLUCOSE,RANDOM 110.0 mg/dl (74-106); SGOT/AST 32.0 U/L (15-37); SGPT/ALT 35.0 U/L (7-52); TOT PROT 6.9 g/dl (6.4-8.2)
[2025-04-26 08:00] LABS: ABSOLUTE IMMATURE GRANULOCYTES 0.20 x10^3/uL (0.0-0.031); BASOPHILS # 0.05 x10^3/uL (0.01-0.08); EOSINOPHIL % 3.5 % (0.8-7.0); EOSINOPHILS # 0.34 x10^3/uL (0.04-0.54); MCHC 31.5 g/dl (32.3-36.5); MEAN CELL VOLUME 89.5 fl (79.0-92.2); MEAN PLT VOLUME 9.0 fl (9.4-12.4); MONOCYTE # 0.75 x10^3/uL (0.30-0.82); MONOCYTE % 7.8 % (5.3-12.2); RDW 15.0 % (12.2-16.4)
[2025-04-26 08:30] LABS: ALK PHOS 54.0 U/L (45-117); CO2 29.0 mmol/L (21-32); CREATININE 1.0 mg/dl (0.6-1.3); GLUCOSE,RANDOM 92.0 mg/dl (74-106); SGOT/AST 36.0 U/L (15-37); SGPT/ALT 35.0 U/L (7-52); TOT PROT 7.0 g/dl (6.4-8.2)
[2025-04-27 17:29] VITALS: BMI 41.0
[2025-04-27] MEDS: ZOLPIDEM TARTRATE 5 MG TABLET PO PRN (21:11)
[2025-04-28] MEDS ORDERED: AMPICILLIN NA/SULBACTAM NA 1.5 GM VIAL ONE (03:18)
[2025-04-28] MEDS: FUROSEMIDE 20 MG TABLET (FP) PO ONE (09:11)
[2025-04-28 13:08] LABS: ABSOLUTE IMMATURE GRANULOCYTES 0.08 x10^3/uL (0.0-0.031); BASOPHILS # 0.08 x10^3/uL (0.01-0.08); EOSINOPHIL % 2.3 % (0.8-7.0); EOSINOPHILS # 0.22 x10^3/uL (0.04-0.54); MCHC 32.1 g/dl (32.3-36.5); MEAN CELL VOLUME 88.2 fl (79.0-92.2); MEAN PLT VOLUME 8.6 fl (9.4-12.4); MONOCYTE # 0.75 x10^3/uL (0.30-0.82); MONOCYTE % 8.0 % (5.3-12.2); RDW 14.8 % (12.2-16.4)
[2025-04-28 13:23] LABS: ALK PHOS 54.0 U/L (45-117); CO2 27.0 mmol/L (21-32); CREATININE 1.1 mg/dl (0.6-1.3); GLUCOSE,RANDOM 117.0 mg/dl (74-106); SGOT/AST 45.0 U/L (15-37); SGPT/ALT 40.0 U/L (7-52); TOT PROT 7.0 g/dl (6.4-8.2)
[2025-04-29] MEDS: FUROSEMIDE 20 MG TABLET (FP) PO ONE (11:19)
[2025-04-29 14:20] VITALS: RESP 17
[2025-04-29] MEDS ORDERED: ALBUTEROL SO4 HFA INHALER IH PRN (15:19)
[2025-04-29] MEDS: BUDESONIDE/FORMETEROL FUMARATE 80/4.5 mcg INHALER IH SCH (21:03)
[2025-04-30 06:19] VITALS: BP 116/64; PULSE 77; TEMP 98.2
[2025-04-30] MEDS: CEFTRIAXONE 2 GM-D5W BAG 2 GM/50 ML BAG IVPB SCH (08:31)
== END 2025-04-30 17:42 | disposition home health service (06) | DRG 872 ==
LOC: FER 12:11 → FM/S 15:58
PROVIDERS: ADMIT Internal Medicine; ATTEND Family Medicine
PROC: 02HV33Z Insertion of Infusion Device into Superior Vena Cava, Percutaneous Approach (ICD-10-PCS; principal; 2025-04-30)
PROC: B548ZZA Ultrasonography of Superior Vena Cava, Guidance (ICD-10-PCS; 2025-04-30)
DX: A41.9 Sepsis, unspecified organism (principal); L03.115 Cellulitis of right lower limb; Z68.41 Body mass index [BMI] 40.0-44.9, adult; I10 Essential (primary) hypertension; I87.2 Venous insufficiency (chronic) (peripheral); E66.9 Obesity, unspecified
CPT/HCPCS: 0241U-QW; 36415; 36569; 71046-TC-FY; 73590-TC-RT-FY; 73700-TC-RT; 76705-TC; 76775-TC; 80048; 80053; 81003; 81015; 82570; 82803; 83036; 83605; 83735; 84100; 84156; 84484; 85025; 85610; 85651; 85730; 86140; 86803; 86850; 86900; 86901; 87040; 87081; 87086; 87389; 93005; 93971-TC; 97116-GP; 97162-GP; 99285-25; G0480

== ENCOUNTER 2025-05-01 13:02 | Day surgery (SDC) | payer OTHER ==
[2025-05-01] MEDS: CEFTRIAXONE 2 GM-D5W BAG 2 GM/50 ML BAG IVPB ONE (13:34)
[2025-05-01 15:15] VITALS: BP 128/81; PULSE 68; RESP 18; TEMP 98.8
== END 2025-05-01 15:15 | disposition home or self-care (01) ==
LOC: FINFUSION 13:02 → FM/S 13:03 → FINFUSION 15:15
PROVIDERS: ATTEND Internal Medicine Infectious Disease
DX: L03.116 Cellulitis of left lower limb (principal)
CPT/HCPCS: 96365

== ENCOUNTER 2025-05-02 12:00 | Day surgery (SDC) | payer OTHER ==
[2025-05-02] MEDS: CEFTRIAXONE 2 GM-D5W BAG 2 GM/50 ML BAG IVPB ONE (12:25)
[2025-05-02 13:28] VITALS: BP 115/72; PULSE 76; RESP 18; TEMP 98.9
== END 2025-05-02 13:29 | disposition home or self-care (01) ==
LOC: FINFUSION 12:00 → FM/S 12:02 → FINFUSION 13:29
PROVIDERS: ATTEND Internal Medicine Infectious Disease
DX: L03.116 Cellulitis of left lower limb (principal)
CPT/HCPCS: 96365

== ENCOUNTER 2025-05-03 11:20 | Day surgery (SDC) | payer OTHER ==
[2025-05-03] MEDS: CEFTRIAXONE 2 GM in SODIUM CHLORIDE 100 ML IVPB SCH (11:52)
[2025-05-03 13:33] VITALS: BP 121/75; PULSE 69; RESP 18; TEMP 98.2
== END 2025-05-03 13:33 | disposition home or self-care (01) ==
LOC: FINFUSION 11:20 → FM/S 11:21 → FINFUSION 13:33
PROVIDERS: ATTEND Internal Medicine Infectious Disease
DX: L03.116 Cellulitis of left lower limb (principal)
CPT/HCPCS: 96365

== ENCOUNTER 2025-05-04 11:10 | Day surgery (SDC) | payer OTHER ==
[2025-05-04] MEDS: CEFTRIAXONE 2 GM-D5W BAG 2 GM/50 ML BAG IVPB ONE (12:01)
[2025-05-04 12:03] VITALS: PULSE 96; RESP 18; TEMP 98.8
[2025-05-04 13:13] VITALS: BP 122/78
== END 2025-05-04 13:14 | disposition home or self-care (01) ==
LOC: FINFUSION 11:10 → FM/S 11:14 → FINFUSION 13:14
PROVIDERS: ATTEND Internal Medicine Infectious Disease
DX: L03.116 Cellulitis of left lower limb (principal)
CPT/HCPCS: 96365